=== PATIENT | female | born 1950 | race Caucasian/White ===

== ENCOUNTER 2018-04-02 07:17 | Emergency (ER) | payer MEDICARE, BC ==
[2018-04-02] MEDS ORDERED: Acetaminophen TAB* 325 MG PO ONE (07:34)
--- NOTE | 2018-04-02 07:36 | UC ---
Respiratory Complaint HPI - HPI Summary HPI Summary: Patient is a 67-year-old female with the onset of typical cold symptoms about 5 days ago. Less than 48 hours ago she started having fever chills severe myalgias cough ,which is sometimes productive, and shortness of breath. He denies any chest pain. She has no nausea vomiting or diarrhea. She has asthma and uses PROAIR as a rescue inhaler and ADVAIR n - History of Current Complaint Chief Complaint: UCRespiratory Stated Complaint: COUGH Time Seen by Provider: 04/02/18 07:28 Hx Obtained From: Patient Onset/Duration: Gradual Onset, Lasting Days Timing: Constant Severity Initially: Mild Severity Currently: Severe Pain Intensity: 4 Pain Scale Used: 0-10 Numeric Character: Cough: Productive Aggravating Factors: Exertion, Deep Breaths, Recumbent Position Alleviating Factors: Nothing Associated Signs And Symptoms: Positive: Dyspnea, Fever, Chills, Nasal Congestion, Sinus Discomfort - Allergies/Home Medications Allergies/Adverse Reactions: Allergies Allergy/AdvReac Type Severity Reaction Status Date / Time aspirin Allergy Unknown Verified 04/02/18 07:34 Reaction Details morphine Allergy Unknown Verified 04/02/18 07:34 Reaction Details zolpidem [From Ambien] Allergy Unknown Verified 04/02/18 07:34 Reaction Details seafood Allergy Unknown Unknown Uncoded 04/02/18 07:34 Reaction Details corn oil Allergy Unknown Uncoded 04/02/18 07:34 Reaction Details Home Medications: Home Medications Magnesium Oxide [Magnesium] 250 mg PO DAILY 04/02/18 [History Confirmed 04/02/18 ] amLODIPine TAB* [Norvasc 5 mg TAB*] 5 mg PO DAILY 04/02/18 [History Confirmed ] PMH/Surg Hx/FS Hx/Imm Hx - Additional Past Medical History Additional PMH: EDWIN Previously Healthy: Yes Cardiovascular History: Hypertension Respiratory History: Asthma, Bronchitis, Pneumonia - Surgical History Surgical History: Yes Surgery Procedure, Year, and Place: Tonsillectomy; Exc. Plantar Wart left foot; Tubal Ligation; Hysterectomy - Family History Known Family History: Positive: Hypertension, Diabetes, Respiratory Disease - Social History Alcohol Use: Daily Alcohol Amount: 1-2 drinks a day Substance Use Type: None Smoking Status (MU): Former Smoker When Did the Patient Quit Smoking/Using Tobacco: 1975 Review of Systems All Other Systems Reviewed And Are Negative: Yes Constitutional: Positive: Fever, Chills, Fatigue Skin: Positive: Negative Eyes: Positive: Negative ENT: Positive: Nasal Discharge, Sinus Congestion Respiratory: Positive: Cough Cardiovascular: Positive: Negative Gastrointestinal: Positive: Negative Genitourinary: Positive: Negative Motor: Positive: Negative Neurovascular: Positive: Negative Musculoskeletal: Positive: Myalgia Neurological: Positive: Headache Psychological: Positive: Negative Physical Exam Triage Information Reviewed: Yes Appearance: No Pain Distress, Well-Nourished, Ill-Appearing Vital Signs: Initial Vital Signs Temp 101.3 F 04/02/18 07:30 Pulse 114 04/02/18 07:30 Resp 14 04/02/18 07:30 BP 167/81 04/02/18 07:30 Pulse Ox 95 04/02/18 07:30 Vital Signs Reviewed: Yes Eyes: Positive: Conjunctiva Clear ENT: Positive: Hearing grossly normal, Nasal congestion, Nasal drainage, Uvula midline. Negative: Tonsillar swelling, Tonsillar exudate, Muffled voice, Hoarse voice, Sinus tenderness Neck: Positive: Supple, Nontender, No Lymphadenopathy Respiratory: Positive: No respiratory distress, No accessory muscle use, Rhonchi Cardiovascular: Positive: RRR, Tachycardia Musculoskeletal: Positive: ROM Intact, No Edema Neurological: Positive: Alert Skin Exam: Normal UC Diagnostic Evaluation - Laboratory O2 Sat by Pulse Oximetry: 95 - low normal Diagnostic Studies Comment: influenza (-) - Radiology Radiology Interpretation Completed By: Radiologist Summary of Radiographic Findings: CXR: NAD Re-Evaluation - Re-Evaluation First Eval Re-Evaluation Time: 09:01 Change: Improved - subjectively much inproved lungs CTA Respiratory Course/Dx - Differential Dx/Diagnosis Provider Diagnosis: Bronchospasm with bronchitis, acute, Hypertension, Obstructive sleep apnea Discharge - Sign-Out/Discharge Documenting (check all that apply): Patient Departure All imaging exams completed and their final reports reviewed: Yes - Discharge Plan Condition: Improved Disposition: HOME Prescriptions: Amoxicillin PO (*) [Amoxicillin 875 MG (*)] 875 mg PO BID #14 tab predniSONE [Deltasone 20 MG TAB] 40 mg PO DAILY #10 tab Patient Education Materials: Acute Bronchitis (ED) Referrals: Nehal Griffin MD [Primary Care Provider] - 4 Days (if not better) Additional Instructions: I suggest you user your rescue inhaler (proair) two puffs 4x day for 5 days then as needed - Billing Disposition and Condition Condition: IMPROVED Disposition: Home
[2018-04-02] MEDS ORDERED: Albuterol 2.5 MG/3 ML NEB.SOL* (0.083%) INH ONE (08:22)
[2018-04-02] MEDS ORDERED: Ipratropium 0.5MG/2.5ML NEB* 0.5 MG/2.5 ML NEB.SOLN INH ONE (08:22)
[2018-04-02 09:05] VITALS: BP 116/69
== END 2018-04-02 09:17 | disposition home or self-care (01) ==
LOC: UCEAST 07:17
DX: J20.9 Acute bronchitis, unspecified (principal); I10 Essential (primary) hypertension; G47.33 Obstructive sleep apnea (adult) (pediatric); J45.909 Unspecified asthma, uncomplicated; Z88.6 Allergy status to analgesic agent; Z88.5 Allergy status to narcotic agent; Z91.018 Allergy to other foods; Z79.899 Other long term (current) drug therapy; Z87.891 Personal history of nicotine dependence
CPT/HCPCS: 71046; 99203; A9270-GY; G0463

== ENCOUNTER 2018-08-11 15:45 | Emergency (ER) | payer MEDICARE, BC ==
[2018-08-11 16:12] VITALS: BP 163/99
[2018-08-11] MEDS ORDERED: Triamcinolone Acetonide* 40 MG/ML 1 ML VIAL IM ONE (16:39)
--- NOTE | 2018-08-11 16:41 | UC ---
Skin Complaint HPI - HPI Summary HPI Summary: 67 yo female with worsening pruritic facial rash now spreading to arms bilateral lid edema also has had to use her rescue inhaler today for cough no sob no fever - History of Current Complaint Chief Complaint: UCGeneralIllness Time Seen by Provider: 08/11/18 16:34 Stated Complaint: RASH, AND ASTHMA Hx Obtained From: Patient Hx Last Menstrual Period: post Onset/Duration: Gradual Onset, Lasting Days Timing: Constant Current Severity: Severe Pain Intensity: 0 Pain Scale Used: 0-10 Numeric Location: Face - >arms Character: Swelling, Pruritus, Redness, Raised Aggravating Factor(s): Touch Alleviating Factor(s): Antihistamines Associated Signs & Symptoms: Positive: Cough, Rash - Allergy/Home Medications Allergies/Adverse Reactions: Allergies Allergy/AdvReac Type Severity Reaction Status Date / Time aspirin Allergy Unknown Verified 08/11/18 16:14 Reaction Details morphine Allergy Unknown Verified 08/11/18 16:14 Reaction Details zolpidem [From Ambien] Allergy Unknown Verified 08/11/18 16:14 Reaction Details seafood Allergy Unknown Unknown Uncoded 08/11/18 16:14 Reaction Details corn oil Allergy Unknown Uncoded 08/11/18 16:14 Reaction Details Home Medications: Home Medications Albuterol HFA INHALER* [Ventolin HFA Inhaler*] 2 puff INH QID PRN 08/11/18 [ History Confirmed 08/11/18] Fluticasone-Salmeterol 250-50* [Advair Diskus 250-50*] 1 puff INH BID 08/11/18 [ History Confirmed 08/11/18] Pramipexole TAB* [Mirapex TAB*] 0.25 mg PO QID 08/11/18 [History Confirmed 08/11] PMH/Surg Hx/FS Hx/Imm Hx Previously Healthy: Yes Cardiovascular History: Hypertension Respiratory History: Asthma - Surgical History Surgical History: Yes Surgery Procedure, Year, and Place: Tonsillectomy; Exc. Plantar Wart left foot; Tubal Ligation; Hysterectomy - Family History Known Family History: Positive: Hypertension, Diabetes, Respiratory Disease - Social History Alcohol Use: Daily Alcohol Amount: 1-2 drinks a day Substance Use Type: None Smoking Status (MU): Former Smoker When Did the Patient Quit Smoking/Using Tobacco: 1975 Review of Systems All Other Systems Reviewed And Are Negative: Yes Constitutional: Positive: Negative Skin: Positive: Rash Eyes: Positive: Other - lid edema ENT: Positive: Negative Respiratory: Positive: Cough Cardiovascular: Positive: Negative Gastrointestinal: Positive: Negative Genitourinary: Positive: Negative Motor: Positive: Negative Neurovascular: Positive: Negative Musculoskeletal: Positive: Negative Neurological: Positive: Negative Psychological: Positive: Negative Physical Exam Triage Information Reviewed: Yes Appearance: Well-Appearing, No Pain Distress, Well-Nourished Vital Signs: Initial Vital Signs Temp 98.8 F 08/11/18 16:07 Pulse 85 08/11/18 16:07 Resp 16 08/11/18 16:07 BP 163/99 08/11/18 16:07 Pulse Ox 95 08/11/18 16:07 Vital Signs Reviewed: Yes Eyes: Positive: Conjunctiva Clear, Other: - bilat lid edema R>L ENT: Positive: Hearing grossly normal. Negative: Nasal congestion, Nasal drainage, Trismus, Muffled voice, Hoarse voice Neck: Positive: Supple, Nontender, No Lymphadenopathy Respiratory: Positive: Lungs clear, Normal breath sounds, No respiratory distress, No accessory muscle use Cardiovascular: Positive: RRR, No Murmur Musculoskeletal: Positive: ROM Intact Neurological: Positive: Alert Psychological Exam: Normal Skin Exam: Other - rash consistent with poison KERRIE, linear arrays accross forehead, papules in linear array on arms Course/Dx - Diagnoses Provider Diagnosis: Poison kerrie dermatitis, Cough variant asthma Discharge - Sign-Out/Discharge Documenting (check all that apply): Patient Departure All imaging exams completed and their final reports reviewed: No Studies - Discharge Plan Condition: Stable Disposition: HOME Patient Education Materials: Magnesium Sulfate (By mouth), Poison Kerrie (ED) Referrals: Nehal Griffin MD [Primary Care Provider] - 4 Days (if not improving ) Additional Instructions: use your inhaler as directed you may take oral benadyrl for the itching - Billing Disposition and Condition Condition: STABLE Disposition: Home
== END 2018-08-11 17:15 | disposition home or self-care (01) ==
LOC: UCEAST 15:45
DX: L23.7 Allergic contact dermatitis due to plants, except food (principal); J45.909 Unspecified asthma, uncomplicated; I10 Essential (primary) hypertension; Z91.013 Allergy to seafood; Z88.8 Allergy status to other drugs, medicaments and biological substances; Z91.018 Allergy to other foods; Z87.891 Personal history of nicotine dependence
CPT/HCPCS: 96372; 99211; G0463; J3301